=== PATIENT | male | born 1995 | race Caucasian/White ===

== ENCOUNTER 2020-11-23 12:55 | Emergency (ER) | payer OTHER ==
[~2020-11-23 12:55] MED LIST: BACTROBAN OINT22 GM EXT; CLEOCIN HCL300 MG PO; IBUPROFEN600 MG PO; ZOFRAN4 MG PO
== END 2020-11-23 14:04 | disposition home or self-care (01) ==
LOC: ER1 12:55
DX: R45.1 Restlessness and agitation (principal); F19.10 Other psychoactive substance abuse, uncomplicated; F11.129 Opioid abuse with intoxication, unspecified
CPT/HCPCS: 99284